=== PATIENT | female | born 1955 | race Caucasian/White ===

== ENCOUNTER → 2016-11-22 | Outpatient (CLI) | payer BC | LOC: BMCIMAGING 13:26 | PROVIDERS: ATTEND Internal Medicine | DX: Z12.31 Encounter for screening mammogram for malignant neoplasm of breast (principal) | CPT/HCPCS: G0202 ==

== ENCOUNTER → 2016-12-23 | Outpatient (CLI) | payer BC | LOC: BMCIMAGING 13:04 | PROVIDERS: ATTEND Internal Medicine | DX: I65.23 Occlusion and stenosis of bilateral carotid arteries (principal) ==

== ENCOUNTER → 2017-03-07 | Outpatient (CLI) | payer BC | LOC: BMCIMAGING 11:51 | PROVIDERS: ATTEND Physician Assistant | DX: M17.0 Bilateral primary osteoarthritis of knee (principal); I70.0 Atherosclerosis of aorta; J45.901 Unspecified asthma with (acute) exacerbation ==

== ENCOUNTER 2017-03-12 07:28 | Inpatient (IN) | payer BC ==
[2017-03-12] MEDS ORDERED: ACETAMINOPHEN 500 MG TAB PO ONE (08:09)
[2017-03-12] MEDS ORDERED: GABAPENTIN 300 MG CAP PO ONE (08:09)
[2017-03-12] MEDS ORDERED: ceFAZolin 2 GM/SWFI 2 GM/20 ML SYR IVP ONE (08:09)
[2017-03-12] MEDS ORDERED: LR 1,000 ML IV ONE (08:17)
[2017-03-12] MEDS ORDERED: LIDOCAINE 1% 2 ML INJ ID PRN (08:17)
--- NOTE | 2017-03-12 08:40 | PDHPUP ---
History & Physical Update H&P update statement: This history and physical update is based on an assessment of the patient which was completed after admission or registration (within 24 hours), but prior to the surgery/procedure. H&P update: H&P reviewed & patient examined, no change in patient's condition since H&P completed
[2017-03-12] MEDS ORDERED: BUPIVACAINE 0.25% 30 ML SDV ONE (08:51)
[2017-03-12] MEDS ORDERED: CHLORHEXIDINE GLUC HIBICLENS 118 ML BTL TP ONE (08:51)
[2017-03-12] MEDS ORDERED: BACITRACIN 50,000 UNITS/10 ML SYR IRR ONE (08:52)
[2017-03-12] MEDS ORDERED: THROMBIN (BOVINE) 5,000 UNIT VIAL TP ONE (08:52)
--- NOTE | 2017-03-12 10:18 | PDANEPAE ---
ANE History of Present Illness here for TLIF ANE Past Medical History - Cardiovascular History Hx Hypertension: No Hx Arrhythmias: No Hx Chest Pain: No Hx Coronary Artery / Peripheral Vascular Disease: No Hx CHF / Valvular Disease: No Hx Palpitations: No - Pulmonary History Hx COPD: No Hx Asthma/Reactive Airway Disease: Yes Hx Recent Upper Respiratory Infection: No Hx Oxygen in Use at Home: No Hx Sleep Apnea: No Sleep Apnea Screening Result - Last Documented: Negative Pulmonary History Comment: ASTHMA - Neurologic History Hx Cerebrovascular Accident: No Hx Seizures: No Hx Dementia: No - Endocrine History Hx Diabetes: No - Renal History Hx Renal Disorders: Yes Renal History Comment: INTERSTIAL CYSTITIS - Liver History Hx Hepatic Disorders: No - Neurological & Psychiatric Hx Hx Neurological and Psychiatric Disorders: Yes Neurological / Psychiatric History Comment: DEPRESSION - Cancer History Hx Cancer: No - Congenital Disorder History Hx Congenital Disorders: No - GI History GERD: moderate Hx Gastrointestinal Disorders: Yes Gastrointestinal History Comment: REFLUX - Other Health History Other Health History: NONE - Chronic Pain History Chronic Pain: No - Surgical History Prior Surgeries: APR 2015 HYSTERECTOMY ANE Review of Systems Review of systems is: negative Review of Systems: - Exercise capacity METS (RN): 4 METS ANE Patient History - Allergies Allergies/Adverse Reactions: codeine Allergy (Verified 03/03/17 14:59) - Home Medications Home medications: home medication list seen and reviewed Home Medications: Cholecalciferol Vit D3 [Vitamin D3 (*)] 1,000 units PO DAILY 03/03/17 [Last Taken 03/05/17] Herbals/Supplements -Info Only 1 ea PO DAILY 03/03/17 [Last Taken 03/05/17] Lansoprazole [Lansoprazole 30 mg tab] 30 mg PO DAILY 03/03/17 [Last Taken ] Levothyroxine [Synthroid 75 mcg (*)] 75 mcg PO DAILY06 03/03/17 [Last Taken 12/19 06:00] PARoxetine HCL [Paxil 10mg (*)] 10 mg PO DAILY 03/03/17 [Last Taken 03/11/17 23: 00] Pentosan Polysulfate Sodium [Elmiron] 100 mg PO TID 03/03/17 [Last Taken 22:00] Pravastatin Sodium 20 mg PO DAILY 03/03/17 [Last Taken 03/11/17 22:00] Raloxifene HCl [Evista 60mg (RX)] 60 mg PO DAILY 03/03/17 [Last Taken 03/11/17 18:00] Albuterol [Proventil Inhaler HFA (*)] 1 - 2 puffs IH Q4-6PRN PRN 03/12/17 [Last Taken 03/12/17 08:00] Mometasone/Formoterol [Dulera 100 Mcg/5 Mcg Inhaler] 2 puffs IH BID 03/12/17 [ Last Taken 03/12/17 08:00] - NPO status NPO Status: no food or drink >8 hours NPO Since - Liquids (Date): 03/11/17 NPO Since - Liquids (Time): 23:30 NPO Since - Solids (Date): 03/11/17 NPO Since - Solids (Time): 21:00 - Smoking Hx Smoking Status: Never smoked - Family Anes Hx Family Hx Anesthesia Complications: NONE ANE Labs/Vital Signs - Vital Signs Blood Pressure: 129/71 Heart Rate: 76 Respiratory Rate: 16 O2 Sat (%): 96 Height: 160.02 cm Weight: 79.832 kg ANE Physical Exam - Airway Neck exam: FROM Mallampati Score: Class 1 Mouth exam: normal dental/mouth exam - Pulmonary Pulmonary: no respiratory distress - Cardiovascular Cardiovascular: regular rate and rhythym - ASA Status ASA Status: II ANE Anesthesia Plan Anesthesia Plan: general endotracheal anesthesia
[2017-03-12] MEDS ORDERED: MIDAZOLAM 2 MG/2 ML VIAL IVP ONE (10:19)
[2017-03-12] MEDS ORDERED: fentaNYL 100 MCG/2 ML INJ ONE ×3 (10:36→14:03)
[2017-03-12] MEDS ORDERED: PROPOFOL/EMULSION 500 MG/50 ML BOTTLE IV ONE ×2 (10:38→11:05)
[2017-03-12] MEDS ORDERED: REMIFENTANIL HCL 1 MG VIAL ONE (11:07)
[2017-03-12] MEDS ORDERED: ONDANSETRON 4 MG/2 ML VIAL IVP PRN ×2 (11:49→13:49)
[2017-03-12] MEDS ORDERED: DEXAMETHASONE 4 MG/ML VIAL IVP PRN (11:49)
[2017-03-12] MEDS ORDERED: ALBUTEROL 3 ML DEYVIAL IH PRN (11:49)
[2017-03-12] MEDS ORDERED: HYDROmorphONE/DILAUDID 1 MG/ML INJ IVP PRN (11:49)
[2017-03-12] MEDS ORDERED: NALOXONE HCL 0.4 MG/ML INJ IVP PRN (11:49)
[2017-03-12] MEDS ORDERED: LR 500 ML IV PRN (11:49)
[2017-03-12] MEDS ORDERED: SURGIFLO MATRIX KIT WITH THROMBIN TP ONE (11:49)
[2017-03-12] MEDS ORDERED: MAGNESIUM HYDROXIDE 30 ML UDCUP PO PRN (13:49)
[2017-03-12] MEDS ORDERED: HYDROmorphone HCL/NS/PF 0.4 MG/2 ML SYR IVP PRN (13:49)
[2017-03-12] MEDS ORDERED: BISACODYL 10 MG SUPP PR PRN (13:49)
[2017-03-12] MEDS ORDERED: LACTULOSE 20 GM/30 ML UDCUP PO PRN (13:49)
[2017-03-12] MEDS ORDERED: diphenhydrAMINE 25 MG CAP PO PRN (13:49)
--- NOTE | 2017-03-12 13:49 | POSTOPPROG ---
Post Op Note Date of Operation: 03/12/17 Surgeon: Danny Escobedo Extruder Operator: Gilda Canales PA-C Anesthesia: GET(General Endotracheal) Pre-op Diagnosis: Lumbar spondylolisthesis, Lumbar radiculopathy Post-op Diagnosis: sme Procedure: 61 yo female sp L4/5 TLIF Inf/Abcess present in the surg proc area at time of surgery?: No Depth: Organ Space EBL: 100-500 Complications: None, see operative report SOAP Progress Note Assessment/Plan: Assessment: Plan: 03/12/17 13:47 S: Patient in PACU. Stable O: NAD, VSS CN II-XII grossly intact No Droop LUI X4 BLE 5/5= Sensation intact to lt touch Incision c/d/i A: 61 yo female sp L4/5 TLIF P: -Admit to med/surg -Advcance diet as tolerated -Brace LSO fitted already- to be worn when up and out of bed, not to shower -No bending, lifting, twisting more than 5-10 pounds -PT.OT -Postop xrays in am -DVT: TEDs, SCDs, Lovenox 24 hours postop Objective: Vital Signs Temp Pulse Resp BP Pulse Ox 37.0 C 76 16 129/71 H 96 03/12/17 10:24 03/12/17 12:02 03/12/17 12:02 03/12/17 12:02 03/12/17 12:02
[2017-03-12] MEDS ORDERED: ALBUTEROL 60 PUFFS/8 GM MDI IH PRN (13:53)
[2017-03-12] MEDS ORDERED: ACETAMINOPHEN 500 MG TAB PO SCH (14:00)
[2017-03-12] MEDS ORDERED: NS W/ 20 KCl/L 1,000 ML IV SCH (14:00)
[2017-03-12] MEDS ORDERED: HYDROmorphONE/DILAUDID 1 MG/ML INJ ONE (14:02)
[2017-03-12] MEDS: fentaNYL 100 MCG/2 ML INJ IVP PRN ×2 (14:07→14:45)
[2017-03-12] MEDS: ACETAMINOPHEN 500 MG TAB PO SCH (16:31)
[2017-03-12] MEDS: METHOCARBAMOL 750 MG TAB PO PRN (17:30)
[2017-03-12] MEDS: Pentosan Polysulfate Sodium [Elmiron] 100 MG PO SCH ×2 (17:34→19:53)
[2017-03-12] MEDS: ceFAZolin 2 GM/DEXTROSE 100 ML IV SCH (17:50)
[2017-03-12] MEDS: SENNOSIDES/DOCUSATE SODIUM TAB PO SCH (19:46)
[2017-03-12] MEDS: FAMOTIDINE 20 MG TAB PO SCH (19:47)
[2017-03-12] MEDS: oxyCODONE IR 5 MG TAB PO PRN (19:47)
[2017-03-12] MEDS: Mometasone/Formoterol [Dulera 100 Mcg/5 Mcg Inhaler] IH SCH (22:14)
[2017-03-13] MEDS: ACETAMINOPHEN 500 MG TAB PO SCH ×4 (00:34→23:04)
[2017-03-13] MEDS: ceFAZolin 2 GM/DEXTROSE 100 ML IV SCH (04:30)
[2017-03-13] MEDS: LEVOTHYROXINE 75 MCG TAB PO SCH (05:28)
[2017-03-13] MEDS: oxyCODONE IR 5 MG TAB PO PRN ×3 (07:42→20:01)
[2017-03-13] MEDS: METHOCARBAMOL 750 MG TAB PO PRN ×2 (07:42→16:57)
[2017-03-13] MEDS ORDERED: LANSOPRAZOLE 30 MG PO SCH (09:00)
--- NOTE | 2017-03-13 09:02 | NEUSURGPN ---
Assessment/Plan: Assessment: Plan: 03/12/17 13:47 S: Patient had a rough night per daughter, did not like the SCDs on right leg so this was removed and now she feels better. Right leg still has pain but is slightly improved. Has right sided incisional muscular pain as expected. O: NAD, VSS CN II-XII grossly intact No Droop LUI X4 BLE 5/5= Sensation intact to lt touch Incision c/d/i A: 61 yo female sp L4/5 TLIF P: -Neuro stable overall. Difficult night so very sleepy this morning -Optimize pain management- try giving muscle relaxants more than pain meds as patient is very sleepy this morning -Brace LSO fitted already- to be worn when up and out of bed, not in shower -No bending, lifting, twisting more than 5-10 pounds -PT.OT- encourage OOB this morning -Postop xrays today if able -DVT: TEDs, SCDs, Lovenox 24 hours postop -Dispo Planning: Will most likley need SNF or rehab - Physician Discussed Patient with : [facility] Physical Exam - Vitals, I&O, Labs I and O 03/12/17 03/13/17 03/14/17 05:59 05:59 05:59 Intake Total 2230 Output Total 775 800 Balance 1455 -800 Weight 79.832 kg Intake: Oral (ml) 680 IV Intake (ml) 1550 Output: Urine (ml) 750 800 Toilet 750 800 Estimated Blood Loss (ml) 25 Other: Number of Voids Bedpan 0 Toilet 2 Vital Signs Temp Pulse Resp BP Pulse Ox 36.5 C 77 16 107/68 95 03/13/17 07:36 03/13/17 07:36 03/13/17 07:36 03/13/17 07:36 03/13/17 07:36 ICD10 Worksheet Patient Problems: Problems Problem Status Onset Spondylolisthesis, lumbar region Acute - ICD10 Problem Qualifiers (1) Spondylolisthesis, lumbar region
--- NOTE | 2017-03-13 09:15 | GOP ---
[f rep st] OPERATIVE REPORT DATE OF OPERATION: 03/12/2017 SURGEON: Danny Escobedo MD NEUROSURGEON: Danny Escobedo MD. SIEBEL ARCHITECT: Stanton Villa PA-C. PREOPERATIVE DIAGNOSIS: Mobile spondylolisthesis at L4-5. POSTOPERATIVE DIAGNOSIS: Mobile spondylolisthesis at L4-5. PROCEDURE PERFORMED: 1. L4-5 transforaminal lumbar interbody fusion. 2. Placement of pedicle screw fixation at L4 and L5. 3. Placement of interbody device at L4-5. 4. Caputa of local autograft. 5. Use of allograft BMP. 6. Use of the operative microscope. 7. Intraoperative stereotactic navigation for screw placement using C-arm with FluoroNav. 8. Intraoperative neurophysiologic monitoring including somatosensory-evoked potentials and EMG. FINDINGS: A successful TLIF. SPECIMENS: None. ESTIMATED BLOOD LOSS: Less than 100 cc. INDICATIONS: The patient is a 61-year-old woman from [facility], who presented with bilateral leg p ain and was found to have a mobile spondylolisthesis at L4-5. She was originally seen by my partner, Dr. Finch who had discussed surgery with her. She was scheduled electively today for L4-5 TLIF. DESCRIPTION OF PROCEDURE: After informed consent was obtained from the patient, the patient was brou ght to the operating room and a formal time-out was performed, identifying the patient by name, medic al record number, and date of . Preoperative antibiotics were given. The endotracheal tube was placed and general endotracheal anesthesia was smoothly induced. All appropriate leads were placed for somatosensory evoked potentials and EMG. The patient was then turned into the prone position on the Shamar table and all appropriate pressure points were padded and checked. Midline lumbar incisi on was marked and 10 cc of 0.25% Marcaine with epinephrine was infiltrated in the skin for hemostasis . The lumbar region was prepped and draped in the normal sterile fashion. Lateral radiograph confir med the level of the incision, and the incision was made using a 10 blade. The subcutaneous tissues were dissected using monopolar electrocautery. The fascia was opened in the midline and the paraspin ous muscles were elevated from the L4 and L5 lamina. The facet joints at L4-5 were exposed for the p edicle screw placement. Once we had this exposure, the Quick Hang stereotactic arc was placed on the L5 spinous process and AP and lateral radiographs were performed using the C-arm, which were then used for the FluoroNav navigation. This was then used to localize the pedicle hole entry points, using th e known surface landmarks at L4 and L5 on both sides. At each entry point, the superior facet of L5 and S1 were slightly drilled exposing the entry of the pedicle and a pedicle probe was then used to p lace our trajectory into the pedicle. On the left side, we began at L5 and the pedicle was probed an d then tapped using a 5.5 mm tap for a 6.5 x 50 mm Medtronic Solaris screw. Using the same procedure , a 6.5 x 55 mm screw was placed at L4 on the left. We then turned our attention to the right side w here a 6.5 x 50 mm screw was placed at L5, and a 6.5 x 55 mm screw was placed at L4. Once all the sc rews were placed another AP and lateral radiograph was performed, confirming good placement. All the screws were stimulated and all stimulated above the threshold of 20 milliamps. At this point, then the operative microscope was brought onto the field. Distraction was placed on the right-sided screw s at L4-5, and the lamina and pars of L4 was drilled removing the inferior facet of L4 completely. T his exposed the foramen and the superior facet of L5 was drilled as well, completely unroofing the fo ramen. The yellow ligament was removed exposing the L4 nerve root exiting and the large disc with so me osteophyte formation at L4-5. The disc was then incised using 11 blade and a diskectomy was perfo rmed using Kerrison punches and rasps. After the disc was removed and the cartilaginous endplates monterroso d been completely removed, the disc space was sized for a 9 x 28 mm Medtronic Elevate cage which was packed with the locally harvested morselized autograft as well as BMP. This cage was then placed int o the disc space and medialized and then expanded to finger tightness. A lateral radiograph confirme d good placement of the cage. At this point, the wound was copiously irrigated using bacitracin irri gation. The lamina and facets on the left side were decorticated using the high-speed drill, and the remaining BMP and autograft was placed over this area for posterior lateral fusion. Both of the scr ew heads were sized for 40 mm Medtronic titanium rods and these were locked into the screw heads usin g the locking caps which were tightened to their final torque. The wound was again copiously irrigat ed using bacitracin irrigation. There was no significant bleeding so no drain was placed. The fasci a was then closed in the midline using interrupted 0 Vicryl, and the deep dermis was closed using int errupted 2-0 Vicryl. The skin was closed using Dermabond. Sterile dressings were placed. The patie nt was awakened in the operating room, transferred to the PACU in stable condition. There were no op erative complications. I was scrubbed and present for the entire procedure. All sponge and needle c ounts were correct at the end of the case. The neurophysiologic monitoring was completely intact thr oughout the entire case. FLUID/URINE OUTPUT: Per the anesthesia record. COMPLICATIONS: There were no operative complications. DRAINS: None. /[id number]/MODL
[2017-03-13] MEDS: PARoxetine HCL 10 MG TAB PO SCH (09:22)
[2017-03-13] MEDS: PANTOPRAZOLE SODIUM 40 MG TAB PO SCH (09:22)
[2017-03-13] MEDS: PRAVASTATIN SODIUM 20 MG TAB PO SCH (09:22)
[2017-03-13] MEDS: SENNOSIDES/DOCUSATE SODIUM TAB PO SCH ×2 (09:23→20:01)
[2017-03-13] MEDS: Pentosan Polysulfate Sodium [Elmiron] 100 MG PO SCH ×3 (09:27→20:04)
[2017-03-13] MEDS: FAMOTIDINE 20 MG TAB PO SCH ×2 (09:32→20:01)
[2017-03-13] MEDS: Mometasone/Formoterol [Dulera 100 Mcg/5 Mcg Inhaler] IH SCH ×2 (09:48→21:09)
[2017-03-13] MEDS: traMADol 50 MG TAB PO PRN (11:28)
[2017-03-13] MEDS: ENOXAPARIN 40 MG/0.4 ML SYR SC SCH (15:26)
--- NOTE | 2017-03-13 15:36 | ASMTCMCOM ---
CM Note CM Note Notes: Pt had planned surgery L4/5 TLIF yesterday. OT rec HHC vs. SNF, PT rec pending. CM to follow for d/c plan of care. Date Signed: 03/13/2017 03:35 PM Electronically Signed By:BASIM Wadsworth
[2017-03-13] MEDS: ONDANSETRON DISINTEGRATING 4 MG TAB PO PRN (18:39)
[2017-03-13] MEDS: DIAZEPAM 5 MG TAB PO PRN (20:01)
[2017-03-14] MEDS: LEVOTHYROXINE 75 MCG TAB PO SCH (04:42)
[2017-03-14] MEDS: ONDANSETRON DISINTEGRATING 4 MG TAB PO PRN (04:43)
[2017-03-14] MEDS: METHOCARBAMOL 750 MG TAB PO PRN (05:21)
--- NOTE | 2017-03-14 08:03 | NEUSURGPN ---
Date of Surgery: 03/12/17 Post Op Day: 2 Assessment/Plan: 61 yo female sp L4/5 TLIF P: -Neuro stable overall -Optimize pain management -Brace LSO fitted already- to be worn when up and out of bed, not in shower -No bending, lifting, twisting more than 5-10 pounds -PT.OT- encourage OOB this morning -Postop xrays today -DVT: TEDs, SCDs, Lovenox 24 hours postop -Dispo Planning: Will most likley need SNF, possibly tomorrow Subjective: Having localized back pain. Objective: Awake. Alert. Muscle strength full at 5/5 Sensation intact - Physician Discussed Patient with : [facility] Physical Exam - Vitals, I&O, Labs I and O 03/13/17 03/14/17 03/15/17 05:59 05:59 05:59 Intake Total 2230 850 Output Total 775 800 Balance 1455 50 Weight 79.832 kg Intake: Oral (ml) 680 850 IV Intake (ml) 1550 Output: Urine (ml) 750 800 Toilet 750 800 Estimated Blood Loss (ml) 25 Other: Number of Voids Bedpan 0 Toilet 2 4 Vital Signs Temp Pulse Resp BP Pulse Ox 37.8 C 81 16 125/68 H 93 03/14/17 07:52 03/14/17 07:52 03/14/17 07:52 03/14/17 07:52 03/14/17 07:52 ICD10 Worksheet Patient Problems: Problems Problem Status Onset Spondylolisthesis, lumbar region Acute
[2017-03-14] MEDS: ACETAMINOPHEN 500 MG TAB PO SCH ×2 (08:44→15:33)
[2017-03-14] MEDS: PANTOPRAZOLE SODIUM 40 MG TAB PO SCH (08:46)
[2017-03-14] MEDS: PRAVASTATIN SODIUM 20 MG TAB PO SCH (08:46)
[2017-03-14] MEDS: PARoxetine HCL 10 MG TAB PO SCH (08:46)
[2017-03-14] MEDS: FAMOTIDINE 20 MG TAB PO SCH ×2 (08:46→20:23)
[2017-03-14] MEDS: ENOXAPARIN 40 MG/0.4 ML SYR SC SCH (08:47)
[2017-03-14] MEDS: SENNOSIDES/DOCUSATE SODIUM TAB PO SCH ×2 (08:47→20:23)
[2017-03-14] MEDS: Mometasone/Formoterol [Dulera 100 Mcg/5 Mcg Inhaler] IH SCH ×2 (09:40→22:42)
[2017-03-14] MEDS: POLYETHYLENE GLYCOL 3350 17 GM PKT PO PRN (15:33)
[2017-03-14] MEDS: Pentosan Polysulfate Sodium [Elmiron] 100 MG PO SCH ×3 (15:35→20:25)
--- NOTE | 2017-03-14 16:58 | ASMTCMCOM ---
CM Note CM Note Notes: Pt is mono-lingual Farsi speaking. OT/PT rec SNF, pt agreeable. [phone] who [facility] referrals to [facility], [facility] and [facility]. Pt non-triggering PASRR in chart. CM to follow. D/c plan of care: SNF when medically stable and insurance authorization is obtained by chosen SNF Date Signed: 03/14/2017 04:58 PM Electronically Signed By:BASIM Wadsworth
[2017-03-14] MEDS: DIAZEPAM 5 MG TAB PO PRN (20:23)
[2017-03-15] MEDS: ACETAMINOPHEN 500 MG TAB PO SCH ×4 (00:09→22:10)
[2017-03-15] MEDS: traMADol 50 MG TAB PO PRN ×2 (00:10→22:10)
[2017-03-15] MEDS: METHOCARBAMOL 750 MG TAB PO PRN ×2 (07:20→14:03)
[2017-03-15] MEDS: LEVOTHYROXINE 75 MCG TAB PO SCH (07:20)
[2017-03-15] MEDS: PANTOPRAZOLE SODIUM 40 MG TAB PO SCH (07:21)
[2017-03-15] MEDS: FAMOTIDINE 20 MG TAB PO SCH ×2 (07:21→22:11)
--- NOTE | 2017-03-15 08:24 | NEUSURGPN ---
Assessment/Plan: 61 yo female sp L4/5 TLIF on 03/12 P: -Optimize pain management, challenging given her tolerance to narcotics -Brace LSO fitted already- to be worn when up and out of bed, not in shower -PT.OT- encourage OOB this morning. Discussed that her shoulder pain maybe from using the walker. She also feels like her acid reflux is contibuting to this issue. She is on Protonix and pepcid -Postop xrays with intact hardware -DVT: TEDs, SCDs, Lovenox -Dispo Planning: Will most likely need SNF, in the next 1-2 days -Discussed with Dr. Escobedo Subjective: low back pain and shoulder pain Objective: NAD A&Ox3 MAAEx4 5/5 and equal in BUE and BLE. Incision c/d/i - Physician Discussed Patient with Dr.: Escobedo Neurosurgery Physical Exam - Vitals, I&O, Labs I and O 03/14/17 03/15/17 03/16/17 05:59 05:59 05:59 Intake Total 850 Output Total 800 Balance 50 Intake: Oral (ml) 850 Output: Urine (ml) 800 Toilet 800 Other: Intake Quantity Yes Sufficient Number of Voids Toilet 4 1 Vital Signs Temp Pulse Resp BP Pulse Ox 36.6 C 79 16 127/74 H 96 03/15/17 07:52 03/15/17 07:52 03/15/17 07:52 03/15/17 07:52 03/15/17 07:52 ICD10 Worksheet Patient Problems: Problems Problem Status Onset Spondylolisthesis, lumbar region Acute
[2017-03-15] MEDS: PARoxetine HCL 10 MG TAB PO SCH (09:05)
[2017-03-15] MEDS: PRAVASTATIN SODIUM 20 MG TAB PO SCH (09:10)
[2017-03-15] MEDS: ENOXAPARIN 40 MG/0.4 ML SYR SC SCH (09:12)
[2017-03-15] MEDS: Pentosan Polysulfate Sodium [Elmiron] 100 MG PO SCH ×3 (09:14→22:43)
[2017-03-15] MEDS: SENNOSIDES/DOCUSATE SODIUM TAB PO SCH ×2 (09:21→22:09)
[2017-03-15] MEDS: POLYETHYLENE GLYCOL 3350 17 GM PKT PO PRN (09:57)
[2017-03-15] MEDS: Mometasone/Formoterol [Dulera 100 Mcg/5 Mcg Inhaler] IH SCH ×2 (10:07→22:04)
[2017-03-15] MEDS: ALBUTEROL 200 PUFFS/18 GM MDI IH PRN (10:19)
[2017-03-15] MEDS: DIAZEPAM 5 MG TAB PO PRN (22:10)
[2017-03-16] MEDS: LEVOTHYROXINE 75 MCG TAB PO SCH (07:07)
--- NOTE | 2017-03-16 08:53 | NEUSURGPN ---
Assessment/Plan: 61 yo female sp L4/5 TLIF on 03/12 P: -Optimize pain management -LSO when OOB -PT/OT- encourage OOB this morning. -Postop xrays with intact hardware -DVT: TEDs, SCDs, Lovenox -Dispo Planning: Will most likely need SNF, dispo when bed available -Discussed with Dr. Escobedo Subjective: low back pain. Shoulder pain improved. Denies any new leg pain, numbness, tingling or weakness Objective: NAD A&ox3 MAEx4 5/5 and equal in BUE and BLE. Incision c/d/i - Physician Discussed Patient with : Chrissy Neurosurgery Physical Exam - Vitals, I&O, Labs I and O 03/15/17 03/16/17 03/17/17 05:59 05:59 05:59 Intake Total 1000 Balance 1000 Intake: Oral (ml) 1000 Other: Intake Quantity Yes Yes Sufficient Number of Voids Toilet 1 4 Vital Signs Temp Pulse Resp BP Pulse Ox 37 C 87 16 111/67 90 L 03/16/17 08:00 03/16/17 08:00 03/16/17 08:00 03/16/17 08:00 03/16/17 08:00 ICD10 Worksheet Patient Problems: Problems Problem Status Onset Spondylolisthesis, lumbar region Acute
[2017-03-16] MEDS: Pentosan Polysulfate Sodium [Elmiron] 100 MG PO SCH ×3 (09:00→23:40)
[2017-03-16] MEDS: Mometasone/Formoterol [Dulera 100 Mcg/5 Mcg Inhaler] IH SCH ×2 (10:10→22:05)
[2017-03-16] MEDS: LANSOPRAZOLE 30MG CAP PO SCH (10:34)
[2017-03-16] MEDS: PRAVASTATIN SODIUM 20 MG TAB PO SCH (10:37)
[2017-03-16] MEDS: METHOCARBAMOL 750 MG TAB PO PRN ×2 (10:37→16:03)
[2017-03-16] MEDS: ACETAMINOPHEN 500 MG TAB PO SCH ×3 (10:37→23:35)
[2017-03-16] MEDS: SENNOSIDES/DOCUSATE SODIUM TAB PO SCH ×2 (10:38→21:32)
[2017-03-16] MEDS: PARoxetine HCL 10 MG TAB PO SCH (10:38)
[2017-03-16] MEDS: FAMOTIDINE 20 MG TAB PO SCH ×2 (10:38→21:33)
[2017-03-16] MEDS: ENOXAPARIN 40 MG/0.4 ML SYR SC SCH (10:44)
[2017-03-16] MEDS: DIAZEPAM 5 MG TAB PO PRN (21:32)
[2017-03-16] MEDS: traMADol 50 MG TAB PO PRN (21:33)
[2017-03-16 23:28] VITALS: RESP 16
[2017-03-17] MEDS: LEVOTHYROXINE 75 MCG TAB PO SCH (05:30)
--- NOTE | 2017-03-17 07:57 | NEUSURGPN ---
Date of Surgery: 03/12/17 Post Op Day: 5 Assessment/Plan: 61 yo female sp L4/5 TLIF on 03/12 P: -Optimize pain management, patient has not been tolerating Oxycodone. Currently taking Robaxin, Valium and Tramadol -LSO when OOB -PT/OT -DVT: TEDs, SCDs, Lovenox -patient with right scapular pain, likely related to surgical positioning-will follow -Dispo Planning: Will most likely need SNF, dispo when bed available -Discussed with Dr. Escobedo Subjective: Patient has right scapular pain Objective: A&ox3 MAEx4 5/ and equal in BUE and BLE Ambulating with walker in room Incision c/d/i Neuro Check Frequency: per routine Urinary Catheter in Place: No - Physician Discussed Patient with : Gregg Neurosurgery Physical Exam - Vitals, I&O, Labs I and O 03/16/17 03/17/17 03/18/17 05:59 05:59 05:59 Intake Total 1000 1500 Balance 1000 1500 Intake: Oral (ml) 1000 1500 Other: Intake Quantity Yes Yes Sufficient Number of Voids Toilet 4 Number of Stools Toilet 1 Vital Signs Temp Pulse Resp BP Pulse Ox 36.8 C 88 16 105/55 L 92 03/16/17 23:27 03/16/17 23:27 03/16/17 23:27 03/16/17 23:27 03/16/17 23:27 ICD10 Worksheet Patient Problems: Problems Problem Status Onset Spondylolisthesis, lumbar region Acute
[2017-03-17 08:21] VITALS: O2SAT 90
[2017-03-17] MEDS: Mometasone/Formoterol [Dulera 100 Mcg/5 Mcg Inhaler] IH SCH ×2 (09:06→21:36)
[2017-03-17] MEDS: LANSOPRAZOLE 30MG CAP PO SCH (09:10)
[2017-03-17] MEDS: ACETAMINOPHEN 500 MG TAB PO SCH ×3 (10:16→20:59)
[2017-03-17] MEDS: PRAVASTATIN SODIUM 20 MG TAB PO SCH (10:17)
[2017-03-17] MEDS: FAMOTIDINE 20 MG TAB PO SCH ×2 (10:18→20:59)
[2017-03-17] MEDS: ENOXAPARIN 40 MG/0.4 ML SYR SC SCH (10:18)
[2017-03-17] MEDS: PARoxetine HCL 10 MG TAB PO SCH (10:19)
[2017-03-17] MEDS: METHOCARBAMOL 750 MG TAB PO PRN (10:19)
[2017-03-17] MEDS: SENNOSIDES/DOCUSATE SODIUM TAB PO SCH ×2 (10:19→20:59)
[2017-03-17] MEDS: traMADol 50 MG TAB PO PRN ×2 (10:20→21:01)
[2017-03-17] MEDS: Pentosan Polysulfate Sodium [Elmiron] 100 MG PO SCH ×3 (10:27→21:24)
--- NOTE | 2017-03-17 16:40 | ASMTCMCOM ---
CM Note CM Note Notes: Chart reviewed. Spoke with Rajani at [facility] and insurance auth still pending. Her daughter expresses wish to take her mother home instead given her improvement and the difficulty the language barrier creates in communication, Spoke with neurosurgery HANDLE [employer]KER and they are in agreement. Referral to [facility] for PT and OT home health services. Anticipate discharge tomorrow if medically stable. Address and phone number verified. Daughter has additional cell phone [employer] [phone]. CM to follow. Date Signed: 03/17/2017 04:40 PM Electronically Signed By:Kacy Butts RN
[2017-03-17] MEDS: DIAZEPAM 5 MG TAB PO PRN (20:59)
[2017-03-18] VITALS: BP 92/50; PULSE 92; TEMP 98.6
[2017-03-18] MEDS: LEVOTHYROXINE 75 MCG TAB PO SCH (06:31)
[2017-03-18] MEDS ORDERED: LANSOPRAZOLE 30MG CAP PO SCH (07:00)
--- NOTE | 2017-03-18 07:18 | NEUSURGPN ---
Date of Surgery: 03/12/17 Post Op Day: 6 Assessment/Plan: Assessment: 61 yo female s/p L4/5 TLIF on 03/12 Plan: -Optimize pain management, patient has not been tolerating Oxycodone. Currently taking Robaxin, Valium and Tramadol-stable today -LSO when OOB -PT/OT-CPM -DVT: TEDs, SCDs, Lovenox -patient with right scapular pain, likely related to surgical positioning-will continue to follow as this is slowly improving -post op xrays reviewed and reported as no complications and well placed hardware -Dispo Planning: Will most likely need SNF, dispo when bed available-may be able to go home with C -pending placement per Case Management -Discussed with Dr. Escobedo -call NS with any questions or concerns Subjective: Awake and alert. NAD. Eating/drinking and voiding. No f/c/n/v/d. No monterroso/neck/ chest/abd or gu complaints. Objective: A&ox3, MAEx4 5/5 and equal in BUE and BLE Ambulating with walker in room Incision c/d/i Neuro Check Frequency: per routine Urinary Catheter in Place: No - Physician Discussed Patient with Dr.: Escobedo Neurosurgery Physical Exam - Vitals, I&O, Labs I and O 03/17/17 03/18/17 03/19/17 05:59 05:59 05:59 Intake Total 1500 1500 Balance 1500 1500 Intake: Oral (ml) 1500 1500 Other: Intake Quantity Yes Yes Sufficient Number of Voids Toilet 3 Number of Stools Toilet 1 Vital Signs Temp Pulse Resp BP Pulse Ox 37.0 C 92 16 92/50 L 90 L 03/17/17 23:54 03/17/17 23:54 03/17/17 23:54 03/17/17 23:54 03/17/17 23:54 ICD10 Worksheet Patient Problems: Problems Problem Status Onset Spondylolisthesis, lumbar region Acute
[2017-03-18] MEDS: ACETAMINOPHEN 500 MG TAB PO SCH ×2 (08:12→14:39)
[2017-03-18] MEDS: ENOXAPARIN 40 MG/0.4 ML SYR SC SCH (08:12)
[2017-03-18] MEDS: FAMOTIDINE 20 MG TAB PO SCH (08:12)
[2017-03-18] MEDS: SENNOSIDES/DOCUSATE SODIUM TAB PO SCH (08:13)
[2017-03-18] MEDS: POLYETHYLENE GLYCOL 3350 17 GM PKT PO PRN (08:13)
[2017-03-18] MEDS: PARoxetine HCL 10 MG TAB PO SCH (08:13)
[2017-03-18] MEDS: PRAVASTATIN SODIUM 20 MG TAB PO SCH (08:13)
[2017-03-18] MEDS: ALBUTEROL 200 PUFFS/18 GM MDI IH PRN (08:17)
[2017-03-18] MEDS: Mometasone/Formoterol [Dulera 100 Mcg/5 Mcg Inhaler] IH SCH (08:18)
[2017-03-18] MEDS: Pentosan Polysulfate Sodium [Elmiron] 100 MG PO SCH ×2 (08:19→14:55)
--- NOTE | 2017-03-18 10:55 | PDIAF ---
- Diagnosis Diagnosis: s/p L spine fusion Code Status: Full Code - Medication Management Discharge Medications: Medications to Continue on Transfer Cholecalciferol Vit D3 [Vitamin D3 (*)] 1,000 units PO DAILY 03/03/17 [Last Taken 03/05/17] Herbals/Supplements -Info Only 1 ea PO DAILY 03/03/17 [Last Taken 03/05/17] Lansoprazole [Lansoprazole 30 mg tab] 30 mg PO DAILY 03/03/17 [Last Taken ] Levothyroxine [Synthroid 75 mcg (*)] 75 mcg PO DAILY06 03/03/17 [Last Taken 12/19 06:00] PARoxetine HCL [Paxil 10mg (*)] 10 mg PO DAILY 03/03/17 [Last Taken 03/11/17 23: 00] Pentosan Polysulfate Sodium [ELMIRON] 100 mg PO TID 03/03/17 [Last Taken 22:00] Pravastatin Sodium 20 mg PO DAILY 03/03/17 [Last Taken 03/11/17 22:00] Raloxifene HCl [Evista] 60 mg PO DAILY 03/03/17 [Last Taken 03/11/17 18:00] Albuterol [Proventil Inhaler HFA (*)] 1 - 2 puffs IH Q4-6PRN PRN 03/12/17 [Last Taken 03/12/17 08:00] Mometasone/Formoterol [Dulera 100 Mcg/5 Mcg Inhaler] 2 puffs IH BID 03/12/17 [ Last Taken 03/12/17 08:00] Acetaminophen [Tylenol ES 500 mg (*)] 1,000 mg PO Q8H tab 03/18/17 [Last Taken Unknown] Diazepam [Valium 5 MG (*)] 5 mg PO HS PRN #20 tab 03/18/17 [Last Taken Unknown] Enoxaparin [Lovenox 40 MG (*)] 40 mg SC DAILY #7 syr 03/18/17 [Last Taken Unknown] Methocarbamol [Robaxin 750 mg (*)] 750 mg PO QID PRN #60 tab 03/18/17 [Last Taken Unknown] Sennosides/Docusate Sodium [Senokot-S] 1 - 2 tab PO BID #30 tab 03/18/17 [Last Taken Unknown] traMADol [Ultram 50 mg (*)] 50 mg PO Q6HRS PRN #60 tab 03/18/17 [Last Taken Unknown] Fdc Antibiotics: none Discharge Medications: Refer to the Discharge Home Medication list for PRN reason. PICC Care - Routine: N/A - Orders Services needed: Registered Nurse, Physical Therapy, Occupational Therapy Oxygen: to keep O2 sat above 90% Diet Recommendation: no restrictions on diet Diet Texture: Regular Texture Diet - Follow Up Care Current Providers and Referrals: Jeanne Subramanian MD [Primary Care Provider] - Danny Escobedo MD [Medical Doctor] - (follow up in 2-3 weeks)
[2017-03-18] MEDS: traMADol 50 MG TAB PO PRN ×2 (11:21→15:08)
--- NOTE | 2017-03-18 13:44 | PDIAF ---
- Diagnosis Diagnosis: s/p L spine fusion Code Status: Full Code - Medication Management Discharge Medications: Medications to Continue on Transfer Cholecalciferol Vit D3 [Vitamin D3 (*)] 1,000 units PO DAILY 03/03/17 [Last Taken 03/05/17] Herbals/Supplements -Info Only 1 ea PO DAILY 03/03/17 [Last Taken 03/05/17] Lansoprazole [Lansoprazole 30 mg tab] 30 mg PO DAILY 03/03/17 [Last Taken ] Levothyroxine [Synthroid 75 mcg (*)] 75 mcg PO DAILY06 03/03/17 [Last Taken 12/19 06:00] PARoxetine HCL [Paxil 10mg (*)] 10 mg PO DAILY 03/03/17 [Last Taken 03/11/17 23: 00] Pentosan Polysulfate Sodium [ELMIRON] 100 mg PO TID 03/03/17 [Last Taken 22:00] Pravastatin Sodium 20 mg PO DAILY 03/03/17 [Last Taken 03/11/17 22:00] Raloxifene HCl [Evista] 60 mg PO DAILY 03/03/17 [Last Taken 03/11/17 18:00] Albuterol [Proventil Inhaler HFA (*)] 1 - 2 puffs IH Q4-6PRN PRN 03/12/17 [Last Taken 03/12/17 08:00] Mometasone/Formoterol [Dulera 100 Mcg/5 Mcg Inhaler] 2 puffs IH BID 03/12/17 [ Last Taken 03/12/17 08:00] Acetaminophen [Tylenol ES 500 mg (*)] 1,000 mg PO Q8H tab 03/18/17 [Last Taken Unknown] Diazepam [Valium 5 MG (*)] 5 mg PO HS PRN #20 tab 03/18/17 [Last Taken Unknown] Enoxaparin [Lovenox 40 MG (*)] 40 mg SC DAILY #7 syr 03/18/17 [Last Taken Unknown] Methocarbamol [Robaxin 750 mg (*)] 750 mg PO QID PRN #60 tab 03/18/17 [Last Taken Unknown] Sennosides/Docusate Sodium [Senokot-S] 1 - 2 tab PO BID #30 tab 03/18/17 [Last Taken Unknown] traMADol [Ultram 50 mg (*)] 50 mg PO Q6HRS PRN #60 tab 03/18/17 [Last Taken Unknown] Fdc Antibiotics: none Discharge Medications: Refer to the Discharge Home Medication list for PRN reason. PICC Care - Routine: N/A - Orders Services needed: Physical Therapy, Occupational Therapy Oxygen: to keep O2 sat above 90% Diet Recommendation: no restrictions on diet Diet Texture: Regular Texture Diet - Follow Up Care Current Providers and Referrals: Danny Escobedo MD [Medical Doctor] - (follow up in 2-3 weeks) Jeanne Subramanian MD [Primary Care Provider] -
[2017-03-18] MEDS: METHOCARBAMOL 750 MG TAB PO PRN (14:38)
--- NOTE | 2017-03-18 15:41 | ASDISCHSUM ---
Discharge Information Plan Status:Home with Home Health Medically Cleared to Leave: Discharge Date:03/18/2017 03:12 PM CM D/C Disposition:Home Health Service ADT D/C Disposition:Home Health Service Projected Discharge Date:03/18/2017 11:00 AM Transportation at D/C: Discharge Delay Reason: Follow-Up Date:03/18/2017 11:00 AM Discharge Slot: Final Diagnosis: Placement Information Referral Type:*Longterm/SNF Referral ID:[id number] Provider Name: Address 1: Phone Number: Address 2: Fax Number: City: Selection Factors: State: Referral Type:*Home Health Care Services [id number] Provider [facility] [address] [facility] [address] 2: City:[place] Selection Factors: State:[place] Patient Contact Information Contact Name:TIN Relationship: Address:[address] Work Phone: City:[place] Alternate Phone: State/Zip Code:[place] [address] Email: Financial Information Financial Class:HMO and PPO Plans Primary Plan Desc:BC OUT OF STATE PPO Primary Plan Number:[id number] Secondary Plan Desc: Secondary Plan Number: Assessment Information [facility] CM Progress Note CM Note CM Note Notes: Pt had planned surgery L4/5 TLIF yesterday. OT rec HHC vs. SNF, PT rec pending. CM to follow for d/c plan of care. Date Signed: 03/13/2017 03:35 PM Electronically Signed By:BASIM Wadsworth [facility] CM Progress Note CM Note CM Note Notes: Pt is mono-lingual Farsi speaking. OT/PT rec SNF, pt agreeable. Spoke w simone Allison ([phone]) who requests referrals to [facility], [facility] and [facility]. Pt non-triggering PASRR in chart. CM to follow. D/c plan of care: SNF when medically stable and insurance authorization is obtained by chosen SNF Date Signed: 03/14/2017 04:58 PM Electronically Signed By:BASIM Wadsworth LACE LACE Length of stay for Answers: 4-6 days current admission Acuity / Level of Care Answers: No. Emergency dept visits in Answers: 0 last 6 months Score: 4 Date Signed: 03/17/2017 04:34 PM Electronically Signed By:Kacy Butts RN [facility] CM Progress Note CM Note CM Note Notes: Chart reviewed. Spoke with Rajani at [facility] and insurance auth still pending. Her daughter expresses wish to take her mother home instead given her improvement and the difficulty the language barrier creates in communication, Spoke with neurosurgery [employer] and they are in agreement. Referral to [facility] for PT and OT home health services. Anticipate discharge tomorrow if medically stable. Address and phone number verified. Daughter has additional cell phone Allison [phone]. CM to follow. Date Signed: 03/17/2017 04:40 PM Electronically Signed By:Kacy Butts RN BC CM Progress Note CM Note CM Note Notes: Pt medically stable for d/c w family support and [facility] RN/OT/PT. Orders to be obtained in [employer]. Date Signed: 03/18/2017 03:39 PM Electronically Signed By:BASIM Wadsworth Intervention Information
== END 2017-03-18 15:12 | disposition home health service (06) | DRG 460 ==
LOC: F3N 07:28
PROVIDERS: ADMIT Neurological Surgery; ATTEND Neurological Surgery
PROC: 4A1004G Monitoring of Central Nervous Electrical Activity, Intraoperative, Open Approach (ICD-10-PCS; principal; 2017-03-12 09:00)
PROC: 0ST20ZZ Resection of Lumbar Vertebral Disc, Open Approach (ICD-10-PCS; principal; 2017-03-12 09:00)
PROC: 8E0WXBZ Computer Assisted Procedure of Trunk Region (ICD-10-PCS; principal; 2017-03-12 09:00)
PROC: 0SG00AJ Fusion of Lumbar Vertebral Joint with Interbody Fusion Device, Posterior Approach, Anterior Column, Open Approach (ICD-10-PCS; principal; 2017-03-12 09:00)
DX: M43.16 Spondylolisthesis, lumbar region (principal); M43.17 Spondylolisthesis, lumbosacral region; M51.36 Other intervertebral disc degeneration, lumbar region; M54.12 Radiculopathy, cervical region; M54.16 Radiculopathy, lumbar region; M79.671 Pain in right foot; J45.909 Unspecified asthma, uncomplicated; E03.9 Hypothyroidism, unspecified; E78.4 Other hyperlipidemia; K21.0 Gastro-esophageal reflux disease with esophagitis; E55.9 Vitamin D deficiency, unspecified
CPT/HCPCS: 97116-GP; 97161-GP; 97166-GO; 97530-GO; 97530-GP; 97535-GO; C1713; J0171; J0690; J1170; J1650; J2250; J2704; J3010

== ENCOUNTER → 2017-09-26 | Outpatient (CLI) | payer BC, MEDICAID | LOC: BMCIMAGING 15:01 | PROVIDERS: ATTEND Internal Medicine | DX: Z13.820 Encounter for screening for osteoporosis (principal); M81.0 Age-related osteoporosis without current pathological fracture; R29.890 Loss of height; M06.9 Rheumatoid arthritis, unspecified; Z78.0 Asymptomatic menopausal state ==